=== PATIENT | female | born 1995 | race Caucasian/White ===

== ENCOUNTER 2016-12-18 19:25 | Emergency (ER) | payer SELFPAY ==
[2016-12-18 20:01] VITALS: BP 128/70
--- NOTE | 2016-12-18 20:11 | UC ---
Epistaxis Nasal HPI - HPI Summary HPI Summary: has been getting bloody noses on and off for the past several days-has not been pinching nostrils but was putting tissue in her nose - History of Current Complaint Chief Complaint: UCGeneralIllness Stated Complaint: NASAL COMPLAINT Time Seen by Provider: 12/18/16 20:00 Hx Obtained From: Patient Hx Last Menstrual Period: 08/27/13 ?: Yes Onset/Duration: Lasting Minutes Timing: Constant Severity Initially: Mild Severity Currently: None Character: Light Aggravating Factor(s): Nothing Alleviating Factor(s): Nothing Associated Signs And Symptoms: Positive: Negative - Allergies/Home Medications Allergies/Adverse Reactions: Allergies Allergy/AdvReac Type Severity Reaction Status Date / Time No Known Allergies Allergy Verified 12/18/16 20:01 Home Medications: Home Medications Folic Acid TAB* [Folvite TAB*] 1 mg PO DAILY 12/18/16 [History Confirmed ] Vitamin TAB* 1 tab PO 12/18/16 [History] Sertraline* [Zoloft*] 50 mg PO DAILY 12/18/16 [History Confirmed 12/18/16] PMH/Surg Hx/FS Hx/Imm Hx Previously Healthy: Yes - Surgical History Surgical History: Yes Surgery Procedure, Year, and Place: CHOLECYSTECTOMY, RT ACHILLES TENDON LENGTHENING , TONSILLECTOMY - Family History Known Family History: Positive: None - Social History Occupation: Unemployed Lives: With Family Alcohol Use: None Substance Use Type: None Smoking Status (MU): Heavy Every Day Tobacco Smoker Have You Smoked in the Last Year: Yes Cessation Counseling: Patient Advised to Stop Review of Systems Constitutional: Negative Skin: Negative Eyes: Negative ENT: Negative, Nasal Discharge - epistaxix on/off Respiratory: Negative Cardiovascular: Negative Gastrointestinal: Negative Genitourinary: Negative Motor: Negative Neurovascular: Negative Musculoskeletal: Negative Neurological: Negative Psychological: Negative All Other Systems Reviewed And Are Negative: Yes Physical Exam Triage Information Reviewed: Yes Appearance: Well-Appearing, No Pain Distress, Well-Nourished Vital Signs: Initial Vital Signs Temp 98.7 F 12/18/16 19:56 Pulse 100 12/18/16 19:56 Resp 16 12/18/16 19:56 BP 128/70 12/18/16 19:56 Pulse Ox 100 12/18/16 19:56 Vital Signs Reviewed: Yes Eye Exam: Normal Eyes: Positive: Conjunctiva Clear ENT Exam: Normal ENT: Positive: Normal ENT inspection, Hearing grossly normal, Pharynx normal, Nasal drainage, Other: - nasal seputm erythematous no bleeding. Negative: Nasal congestion Dental: Positive: Gross Decay/Caries @ Neck exam: Normal Neck: Positive: Supple, Nontender, No Lymphadenopathy Respiratory Exam: Normal Respiratory: Positive: Chest non-tender, Lungs clear, Normal breath sounds, No respiratory distress, No accessory muscle use Cardiovascular Exam: Normal Cardiovascular: Positive: RRR, No Murmur, Pulses Normal, Brisk Capillary Refill Musculoskeletal Exam: Normal Musculoskeletal: Positive: Strength Intact, ROM Intact, No Edema Neurological Exam: Normal Neurological: Positive: Alert, Muscle Tone Normal Psychological Exam: Normal Psychological: Positive: Normal Response To Family Skin Exam: Normal Epistaxis Nasal Course/Dx - Course Course Of Treatment: cool mist humidifer, vaseline to nose, saline nasal spray, increase fluids, direct pressure for any further bleeding - Differential Dx/Diagnosis Differential Diagnosis/HQI/PQRI: Coagulopathy, Epistaxis, Hypertension Provider Diagnoses: Epistaxis, 2nd trimester of Discharge - Discharge Plan Condition: Stable Disposition: HOME Patient Education Materials: Sodium Chloride (Into the nose), Nosebleed (ED) Referrals: [facility] [place] [facility] [place] [facility] [Outside] - 3 Days
== END 2016-12-18 20:28 | disposition home or self-care (01) ==
LOC: UCCORT 19:25
DX: O26.892 Other specified pregnancy related conditions, second trimester (principal); Z3A.00 Weeks of gestation of pregnancy not specified; R04.0 Epistaxis; Z90.49 Acquired absence of other specified parts of digestive tract; F17.210 Nicotine dependence, cigarettes, uncomplicated
CPT/HCPCS: 99212; G0463

== ENCOUNTER 2017-01-21 15:12 | Emergency (ER) | payer SELFPAY ==
[2017-01-21 16:40] VITALS: BP 128/73
[2017-01-21] MEDS ORDERED: predniSONE TAB* 20 MG PO ONE (17:16)
--- NOTE | 2017-01-21 17:16 | UC ---
Respiratory Complaint HPI - History of Current Complaint Chief Complaint: UCGeneralIllness Stated Complaint: LEFT EAR PAIN,CONGESTION Time Seen by Provider: 01/21/17 16:39 Hx Obtained From: Patient Hx Last Menstrual Period: 08/27/13 ?: Yes Onset/Duration: Sudden Onset - 5 days with cough congestion and some ear pain., Lasting Days - 5, Worse Since - last 2 days. Timing: Constant Severity Initially: Mild Severity Currently: Moderate Character: Cough: Nonproductive - wheezing Associated Signs And Symptoms: Positive: Dyspnea, Wheezing, URI, Nasal Congestion - Risk Factors Pulmonary Embolism Risk Factors: , Smoking Cardiac Risk Factors: Family History - Allergies/Home Medications Allergies/Adverse Reactions: Allergies Allergy/AdvReac Type Severity Reaction Status Date / Time Eggs or Egg-derived Products Allergy Nausea And Verified 01/21/17 16:40 Vomiting Home Medications: Home Medications guaiFENesin ER TAB [Mucinex*] 1 tab PO BID PRN 01/21/17 [History Confirmed 01/21] PMH/Surg Hx/FS Hx/Imm Hx Endocrine History Of: Denies: Thyroid Disease Respiratory History Of: Denies: Asthma - Surgical History Surgical History: Yes Surgery Procedure, Year, and Place: CHOLECYSTECTOMY, RT ACHILLES TENDON LENGTHENING , TONSILLECTOMY - Family History Known Family History: Positive: None, Hypertension, Diabetes Negative: Cardiac Disease - Social History Occupation: Employed Full-time Lives: With Family Alcohol Use: None Substance Use Type: None Smoking Status (MU): Light Every Day Tobacco Smoker Amount Used/How Often: 3-4 cig/day Have You Smoked in the Last Year: Yes Household Exposure Type: Cigarettes Review of Systems ENT: Ear Ache Respiratory: Shortness Of Breath, Cough Neurological: Headache - has mostly resolved All Other Systems Reviewed And Are Negative: Yes Physical Exam Triage Information Reviewed: Yes Appearance: No Pain Distress, Well-Nourished, Ill-Appearing Vital Signs: Initial Vital Signs Temp 98.9 F 01/21/17 16:35 Pulse 115 01/21/17 16:35 Resp 18 01/21/17 16:35 BP 128/73 01/21/17 16:35 Pulse Ox 97 01/21/17 16:35 Vital Signs Reviewed: Yes Eyes: Positive: Conjunctiva Clear ENT: Positive: Pharyngeal erythema, Nasal congestion, TM bulging - but translucent Dental: Positive: Gross Decay/Caries @ Neck exam: Normal Respiratory: Positive: Wheezing - Diffuse expiratory. Negative: Respiratory distress, Accessory muscle use Cardiovascular Exam: Normal Abdomen Description: Positive: Soft, Other: - with normal FHT Musculoskeletal Exam: Normal Neurological Exam: Normal Psychological Exam: Normal Skin Exam: Normal UC Diagnostic Evaluation - Laboratory O2 Sat by Pulse Oximetry: 97 Respiratory Course/Dx - Differential Dx/Diagnosis Differential Diagnosis/HQI/PQRI: Asthma, Lower Resp Infection, Sinusitis Provider Diagnoses: Acute URI. Acute bronchospasm. Eustachian tube dysfunction. Discharge - Discharge Plan Condition: Stable Disposition: HOME Prescriptions: Albuterol HFA INHALER* [Ventolin HFA Inhaler*] 2 puff INH Q4H PRN #1 mdi PRN Reason: Wheezing predniSONE TAB* [Deltasone TAB*] 20 mg PO DAILY #18 tab Patient Education Materials: Upper Respiratory Infection (ED), Bronchospasm (ED ), Prednisone (By mouth) Additional Instructions: Smoking Cessation Tricks. 1. Cut down by 1 cigarette per day every 2-3 days. Write the number of smokes for that day on the calendar. 2. Identify triggers to smoking: after meals, on the phone, in the car, with coffee, on breaks at work, etc. 3. Formulate a plan with a behavior to replace the smoking. Fireballs in the car , doodle pad on the phone, flavored creamer for the coffee, go for a walk after a meal or on break at work. 4. For stress smokes do deep breathing relaxation. Breath deep in through the nose hold the breath in for a few seconds then breath out slowly through the mouth. NASAL SPRAYS AND DROPS: Afrin in the PUMP/ MIST bottle. Tilt your head down and look at the floor while doing a strong sniff with the spray. Decongestant nasal sprays and drops often give dramatic relief from congestion. They are often recommended for patients with sinus infection to assist with sinus drainage. Persons with high blood pressure should consult the doctor before using these nasal sprays. Afrin and Mynor-Synephrine are common behh-bio-[id number] preparations. They should not be used for more than five days, as "rebound" congestion can occur - - the congestion flares as the drug wears off. A way of dealing with this rebound congestion problem is to medicate only one nostril each time, allowing the other nostril to recover from the medicine' s effects. When you no longer need the drug during the day, spray only one nostril each night. This helps you sleep well without severe rebound congestion. Call the doctor if you develop severe headache, palpitations, or chest pain.
== END 2017-01-21 17:42 | disposition home or self-care (01) ==
LOC: UCCORT 15:12
DX: O26.899 Other specified pregnancy related conditions, unspecified trimester (principal); J06.9 Acute upper respiratory infection, unspecified; J98.01 Acute bronchospasm; H69.80 Other specified disorders of Eustachian tube, unspecified ear; Z90.49 Acquired absence of other specified parts of digestive tract; F17.210 Nicotine dependence, cigarettes, uncomplicated; K02.9 Dental caries, unspecified
CPT/HCPCS: 99212; G0463; J7512

== ENCOUNTER 2017-06-28 19:48 | Emergency (ER) | payer OTHER ==
[2017-06-28 20:06] VITALS: BP 123/70
--- NOTE | 2017-06-28 20:31 | UC ---
Respiratory Complaint HPI - HPI Summary HPI Summary: pt presents with 2 children with respiratory complaints. Pt with cough and congestion since Monday. + sinus congestion, +PND No ear pain. No fever, chills, rash Taking Tylenol - with improvement Pt with 3month old - not breast feeding no diarrhea No vagina discharge, itching, burning nausea last night - no vomiting vaccinations UTD mom smokes 2 cigs per day Pt's medications reviewed this visit - History of Current Complaint Chief Complaint: UCRespiratory Stated Complaint: CHEST CONGESTION, COUGH Time Seen by Provider: 06/28/17 20:03 Hx Obtained From: Patient Hx Last Menstrual Period: 08/27/13 ?: No Severity Initially: Mild Severity Currently: Mild Character: Cough: Nonproductive - Allergies/Home Medications Allergies/Adverse Reactions: Allergies Allergy/AdvReac Type Severity Reaction Status Date / Time Eggs or Egg-derived Products Allergy Nausea And Verified 06/28/17 20:06 Vomiting PMH/Surg Hx/FS Hx/Imm Hx Previously Healthy: Yes - Surgical History Surgical History: Yes Surgery Procedure, Year, and Place: CHOLECYSTECTOMY, RT ACHILLES TENDON LENGTHENING , TONSILLECTOMY - Family History Known Family History: Positive: None, Hypertension, Diabetes Negative: Cardiac Disease - Social History Lives: With Family Alcohol Use: None Substance Use Type: None Smoking Status (MU): Light Every Day Tobacco Smoker Amount Used/How Often: 3-4 cig/day Have You Smoked in the Last Year: Yes Household Exposure Type: Cigarettes Review of Systems Constitutional: Negative Skin: Negative Eyes: Negative ENT: Negative Respiratory: Cough Cardiovascular: Negative Gastrointestinal: Negative Genitourinary: Negative Motor: Negative Neurovascular: Negative Musculoskeletal: Negative Neurological: Negative Psychological: Negative Is Patient Immunocompromised?: No All Other Systems Reviewed And Are Negative: Yes Physical Exam Triage Information Reviewed: Yes Appearance: Well-Appearing, No Pain Distress Vital Signs: Initial Vital Signs Temp 98.5 F 06/28/17 20:04 Pulse 92 06/28/17 20:04 Resp 16 06/28/17 20:04 BP 123/70 06/28/17 20:04 Pulse Ox 99 06/28/17 20:04 Vital Signs Reviewed: Yes Eye Exam: Normal Eyes: Positive: Conjunctiva Clear ENT Exam: Normal ENT: Positive: Normal ENT inspection, Hearing grossly normal, Pharynx normal, Nasal congestion - TM x 2 clear + nasal congestion + PND uvula midline no exudate, no erythema, TMs normal Dental Exam: Normal Neck exam: Normal Neck: Positive: Supple, Nontender, No Lymphadenopathy Respiratory Exam: Normal Respiratory: Positive: Chest non-tender, Lungs clear, No respiratory distress, No accessory muscle use, Wheezing - + diffuse wheeze no rhonchi Cardiovascular Exam: Normal Cardiovascular: Positive: RRR, No Murmur, Pulses Normal, Brisk Capillary Refill Abdominal Exam: Normal Abdomen Description: Positive: Nontender, No Organomegaly, Soft Bowel Sounds: Positive: Present Musculoskeletal Exam: Normal Neurological Exam: Normal Neurological: Positive: Alert Psychological Exam: Normal Skin Exam: Normal UC Diagnostic Evaluation - Laboratory O2 Sat by Pulse Oximetry: 99 Respiratory Course/Dx - Course Course Of Treatment: Pt with congestion, wheeze on exam. Pt with sick contact with similar. Will give Rx flonase, MDI. encouraged decrease smoking. hydrate. secretion precaution. Pt in agreement with plan - Differential Dx/Diagnosis Provider Diagnoses: upper resp infection Discharge - Discharge Plan Condition: Stable Disposition: HOME Prescriptions: Fluticasone NASAL SPRAY 50MCG* [Flonase NASAL SPRAY 50MCG*] 2 spray BOTH NARES DAILY #1 btl Patient Education Materials: Upper Respiratory Infection (ED) Referrals: No Primary Care Phys,NOPCP [Primary Care Provider] - Additional Instructions: - Okay to alternate ibuprofen (advil, motrin) and tylenol every 3 hours for fever - stay well hydrated - drink plenty of non-alcoholic, non-caffinated beverages - use inhaler - 2 puffs every 4 hours for wheezing - use nasal spray as prescribed -okay to take over the counter decongestants - These infections are spread by secretions - do NOT share eating or drinking utensils - clean items you share with other people such as cell phones, computer mouse, TV remote, computer tablets, etc - frequent hand washing is important - contact your doctor, return here, or go to the emergency department with questions or concerns
[2017-06-28] MEDS ORDERED: Albuterol HFA INHALER* 8 gm MDI INH ONE (20:47)
== END 2017-06-28 21:06 | disposition home or self-care (01) ==
LOC: UCCORT 19:48
DX: J06.9 Acute upper respiratory infection, unspecified (principal); F17.210 Nicotine dependence, cigarettes, uncomplicated
CPT/HCPCS: 99212; A9270-GY; G0463

== ENCOUNTER 2017-11-18 10:06 | Emergency (ER) | payer OTHER ==
--- OUTSIDE RECORDS SUMMARY | 2017-11-18 11:14 | XMS REPORT ---
:1995 External Reference #:[id number] Author Organization [facility] [address] [facility] [address] [address] Phone [phone] Care Team Providers Name Role Phone In Annetta Loo M.D. Care Team Information Supervisor Floor Assembly Unavailable Payers Type Date Identification Numbers Payment Provider Subscriber Commercial Effective: Policy Number: [facility] 2013 [id number] [place] PayID: [id number] [address] [place] [address] Medigap Part B Effective: 2013 Policy Number: Medicaid CARINE Nicholson [id number] PayID: [id number] [address] [place] [address] Problems Date Description Provider Status Onset: 06/06/2014 Diphtheria + pertussis + tetanus Lilly Marin CNM Active vaccine Onset: 05/28/2014 In Annetta Loo M.D. Active Onset: 05/28/2014 In Annetta Loo M.D. 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 Family History Date Family Member(s) Problem(s) Comments Siblings 2 Siblings One With Bipolar One With Asthma Maternal Grandfather Skin Cancer Maternal Uncles Breast Cancer Social History Type Date Description Comments Education Highest level completed, 12th grade Marital Status Legal Status: Legally Lives With Mother And Father Lives With Brother Smoke-Free Home is smoke-free smokes outside Smoke-Free Work is smoke-free Work Status Full-Time Employment Abuse No history of abuse ETOH Use Rarely consumes alcohol Recreational Drug Use Never Used Drugs Smoking Patient is a current smoker, smokes 1/2 PPD every day Daily Caffeine Consumes on average 5 cups of regular coffee per day # Partners in a Lifetime 4 STD's Chlamydia STD's Genital Herpes Allergies, Adverse Reactions, Alerts Date Description Reaction Status Severity Comments 12/02/2013 NKDA active Medications Medication Date Status Form Strength Qnty SIG Indications Ordering Provider No Active Active Unknown Medications 018 Diflucan Hx Tablets 150mg 1tabs 1 by mouth In Whan 014 - every day Mayra Loo 014 No Active Hx Unknown Medications 014 - 014 AD Hx Tablets 90tabs take one by Gagen, 014 - mouthevery Lilly day , CNM 014 Flintstones Hx Unknown Complete 000 Immunizations CPT Code Status Date Vaccine Lot # [id number] Given 07/09/2014 Influenza Virus Split 3 Yrs And Above Dosage [id number] Given 06/06/2014 tetanus, diptheria, acellular pertussis / over 7 years/intra mus [id number] Given 05/23/2014 Rho(D) Immune Globulin Full Dose Intramuscular [id number] Vital Signs Date Vital Result Comment 10/27/2017 Height 67 inches 5'7" Weight 159.00 lb BP Systolic 120 mmHg BP Diastolic 68 mmHg BMI (Body Mass Index) 24.9 kg/m2 07/09/2014 Weight 165.00 lb BP Systolic 130 mmHg BP Diastolic 70 mmHg 06/23/2014 Weight 164.00 lb BP Systolic 122 mmHg BP Diastolic 68 mmHg 06/06/2014 Weight 161.00 lb BP Systolic 120 mmHg BP Diastolic 68 mmHg 05/23/2014 Weight 159.00 lb BP Systolic 120 mmHg BP Diastolic 58 mmHg 04/25/2014 Weight 158.00 lb BP Systolic 120 mmHg BP Diastolic 68 mmHg 02/27/2014 Weight 149.00 lb BP Systolic 120 mmHg BP Diastolic 60 mmHg 02/13/2014 Weight 151.00 lb BP Systolic 120 mmHg BP Diastolic 58 mmHg 01/07/2014 Height 67 inches 5'7" Weight 154.00 lb BP Systolic 120 mmHg BP Diastolic 60 mmHg BMI (Body Mass Index) 24.1 kg/m2 12/02/2013 Height 67 inches 5'7" Weight 161.00 lb BP Systolic 120 mmHg BP Diastolic 60 mmHg BMI (Body Mass Index) 25.2 kg/m2 12/02/2013 Height 67 inches 5'7" Weight 160.00 lb BP Systolic 118 mmHg BP Diastolic 58 mmHg BMI (Body Mass Index) 25.1 kg/m2 Results Test Date Test Result H/L Range Note Laboratory test finding 07/09/2014 Vaginal Strep Screen See Note 1 Laboratory test finding 05/23/2014 RhIMMUNE Globulin See Note 2 26-28 Weeks Urinalysis With 05/23/2014 Urine Color YELLOW Yellow Microscopic Urine Clarity CLEAR Clear Urine Glucose - Dipstick NEGATIVE mg/dL Negative Urine Bilirubin - Dipstick NEGATIVE Negative Urine Ketone NEGATIVE mg/dL Negative Urine Specific [place] 1.015 1.010-1.030 Urine Blood NEGATIVE Negative Urine PH 6.5 6.5-7.5 Urine Protein - Dipstick NEGATIVE mg/dL Negative Urine Urobilinogen - Dipstick 0.2 E.U./dL 0.2-1.0 Urine Nitrite - Dipstick NEGATIVE Negative Urine Leuk Esterase MODERATE High Negative Urine RBC 0-2 rbc/hpf 0-7 Urine WBC 5-10 wbc/hpf 0-7 Urine Epithelial Cells MANY NONESEEN/lpf 3 Urine Bacteria MODERATE NONESEEN High Type And Screen 05/23/2014 Patient Blood Type AB NEG Antibody Screen Negative Negative Laboratory test finding 05/23/2014 Urine Screen See Note 4 Urine Culture See Note 5 Hemoglobin/Hematocrit 05/23/2014 Hemoglobin 11.5 gm/dL Low 11.6-15.8 Hematocrit 34.0 % Low 36.0-46.1 Glucose,1 HR Post Glucola 05/23/2014 1 HR Glucose,Post Glucola 79 mg/dL - 138 6 1 Hour Urine Glucose NEGATIVE % Negative 1 Hour Urine Ketone NEGATIVE Negative Afp,Tetra Profile 02/14/2014 Afp Tetra REF#[id number] 7 Cystic Fibrosis Dna 02/14/2014 Cystic Fibrosis [id number] 8 Chlamydia/GC Audra 12/10/2013 Chlamydia Trachomatis, Negative Negative Audra Neisseria Gonorrhoeae, Audra Negative Negative Please note: See Note 9 Genital Culture W/ Gram Stain 12/10/2013 Gram Stain See Note 10 Genital Culture See Note 11 1 Comprehensive 12/02/2013 Hepatitis B Surface Nonreactive 12 ([facility] Antigen Nonreactive Rapid Plasma Reagin NONREACTIVE NONREACTIVE 13 Lead,Blood (Adult) 1 g/dL 0-19 14 Varicella-Zoster Virus IgG Ab 1.25 Immune>1.09in 15 Antibody Detection See Note 16 Urine Culture See Note 17 Rubella Igg Antibody 12/02/2013 Rubella IgG Antibody Reactive Reactive Rubella IgG Iu/ml 14.1 IU/mL >=10.0 18 CBC W/Automated Diff 12/02/2013 White Blood Count 10.9 K/uL High 3.1-10.7 Red Blood Count 4.37 M/uL 3.90-5.40 Hemoglobin 12.6 gm/dL 11.6-15.8 Hematocrit 37.8 % 36.0-46.1 Mean Cell Volume 86.5 fl 80.9-99.0 Mean Corpuscular HGB 28.8 pg 25.9-32.7 Mean Corpuscular HGB Conc 33.3 g/dL 30.8-34.3 Platelet Count 324 K/uL 155-360 Red Cell Distri Width SD 47.3 fl High 3-47 Red Cell Distri Width %CV 15.1 % High 11.7-14.4 Mean Platelet Volume 11.0 fL 8.9-12.4 Neut% 57.7 % 28.0-68.0 Lymph % 28.3 % 17.0-46.1 [place] % 12.1 % 4.3-13.2 Eo% 1.5 % 0.0-6.6 Bas% 0.4 % 0.0-1.1 Neut# 6.29 K/uL 1.0-7.0 Lymph # 3.09 K/uL 0.8-3.4 [place] # 1.32 K/uL High 0.0-0.6 Eos # 0.16 K/uL 0.0-0.5 Baso # 0.04 K/uL 0.0-0.1 Type And Screen 12/02/2013 Patient Blood Type AB NEG Antibody Screen Negative Negative Urinalysis With Microscopic 12/02/2013 Urine Color YELLOW Yellow Urine Clarity CLEAR Clear Urine Glucose - Dipstick NEGATIVE mg/dL Negative Urine Bilirubin - Dipstick NEGATIVE Negative Urine Ketone 15 mg/dL High Negative Urine Specific [place] 1.020 1.010-1.030 Urine Blood NEGATIVE Negative Urine PH 6.0 Low 6.5-7.5 Urine Protein - Dipstick NEGATIVE mg/dL Negative Urine Urobilinogen - Dipstick 0.2 E.U./dL 0.2-1.0 Urine Nitrite - Dipstick NEGATIVE Negative Urine Leuk Esterase TRACE High Negative Urine RBC NONE SEEN rbc/hpf 0-7 Urine WBC 0-2 wbc/hpf 0-7 Urine Epithelial Cells MODERATE NONESEEN/lpf 19 Urine Mucus SMALL NONESEEN Laboratory test finding 11/22/2013 HCG Serum, Qualitative POSITIVE High 1 NO GROUP B STREPTOCOCCI ISOLATED 2 -------- Issue -------- Unit # Bld Type Product Status Date Time User Rsrvd [id number] RHOGAM PRSMD TRFSD 05/23/143 LAB.TOW Unit Satisfactory? No Apparent Contamination Volume: 2 ML TX Begin: 05/23/14 By AutoDft [place] End: 05/23/14 By AutoDft 3 POSSIBLE UROGENITAL CONTAMINATION. 4 05/23/14 LAB.CKS Deleted by Reflex Group UACOM 5 COLONY COUNT ! >100,000 CFU/ml Organism 1 ! URETHRAL NOELLE 6 POST GLUCOLA 7 FORWARDED TO REFERENCE LABORATORY. 8 FORWARDED TO REFERENCE LABORATORY. 9 Acceptable specimens for this test are male urethral swab, endocervical swab and liquid based pap specimens, vaginal swabs in APTIMA transports and first void urine. See online Directory of Services for test number for rectal and pharyngeal specimens. Performed at: [facility] [address], [place], [place] [id number] Salesperson Hosiery: Daniella Jackson MD, Phone: [phone] 10 GRAM STAIN ! GRAM STAIN SUSPICIOUS FOR BACTERIAL VAGINOSIS ! MANY GRAM VARIABLE COCCOBACILLI 11 Organism 1 ! GARDNERELLA VAGINALIS QUANTITY ! MANY 12 HBsAg not detected; does not exclude the possibility of exposure to or early acute infections with HBV. 13 PENDING; TEST PERFORMED ON MONDAYS AND THURSDAYS 14 The Centers for Disease Control and Prevention states blood lead levels less than 10 ug/dL in children have been associated with numerous adverse health effects. [facility] Guidelines: Blood lead levels in the range 5-9 ug/dL have been associated with adverse health effects in children aged 6 years and younger. Environmental Exposure: WHO Recommendation <20 Occupational Exposure: OSHA Lead Std 40 Detection Limit=1 15 Nonimmune <0.91 Equivocal 0.91 - 1.09 Immune >1.09 Effective December 09, 2013 the reference interval for Varicella-Zoster V Ab, IgG will be changing to: Negative <135 Equivocal 135 - 165 Positive >165 Performed at: - [facility] [id number] Salesperson Hosiery: Daniella Jackson MD, Phone: [phone] 16 No reportable results 17 COLONY COUNT ! 5,000 - 10,000 CFU/ml Organism 1 ! URETHRAL NOELLE 18 Values >=10.0 IU/mL are positive for IgG antibodies to rubella virus and are considered IMMUNE. 19 POSSIBLE UROGENITAL CONTAMINATION. Procedures Date CPT Code Description Status 07/09/2014 12589 Echography Uterus Complete>14WKS. 0 Days Completed 07/09/2014 98646 Antepartum Care 7 Or More Visits Completed 07/09/2014 71444 Antepartum Care 7 Or More Visits Completed 06/23/2014 85845 Antepartum Care 7 Or More Visits Completed 06/23/2014 51355 Antepartum Care 7 Or More Visits Completed 06/06/2014 53930 Antepartum Care 7 Or More Visits Completed 06/06/2014 25389 Antepartum Care 4-6 Visits Completed 05/23/2014 85108 Antepartum Care 4-6 Visits Completed 05/23/2014 45124 Antepartum Care 4-6 Visits Completed 04/25/2014 25485 Antepartum Care 4-6 Visits Completed 04/25/2014 97072 Antepartum Care 4-6 Visits Completed 02/27/2014 60659 Antepartum Care 4-6 Visits Completed 02/27/2014 17433 Antepartum Care 4-6 Visits Completed 02/13/2014 74099 Antepartum Care 4-6 Visits Completed 02/13/2014 67694 Antepartum Care 4-6 Visits Completed 01/07/2014 27950 Antepartum Care 4-6 Visits Completed 01/07/2014 42392 Antepartum Care 4-6 Visits Completed 12/17/2013 69899 Ultrasound < 14 Weeks Single Or First Gestation Completed 12/10/2013 22175 Antepartum Care 4-6 Visits Completed 12/10/2013 52042 Antepartum Care 4-6 Visits Completed 12/02/2013 94872 Antepartum Care 4-6 Visits Completed Plan of Care Future Appointment(s):11/10/2017 8:30 am - In Annetta Loo M.D. at [id number] - In Annetta Loo M.D.N63.42 Unspecified lump in left breast, subareolarNew Xrays:B/L Breast Sonogram
--- OUTSIDE RECORDS SUMMARY | 2017-11-18 11:14 | XMS REPORT ---
:1995 External Reference #:[id number] Author Organization [facility] Address [facility] [address] [address] Phone [phone] Care Team Providers Name Role Phone In Annetta Loo M.D. Care Team Information Lead Simulation Modeling Engineer Unavailable Payers Type Date Identification Numbers Payment Provider Subscriber Commercial Effective: Policy Number: [facility] 2013 [id number] [place] PayID: [id number] [address] [place] [address] Medigap Part B Effective: 2013 Policy Number: Medicaid CARINE Nicholson [id number] PayID: [id number] [address] [place] [address] Problems Date Description Provider Status Onset: 06/06/2014 [...] CPT Code Status Date Vaccine Lot # [id number] Given 07/09/2014 Influenza Virus Split 3 Yrs And Above Dosage [id number] Given 06/06/2014 tetanus, diptheria, acellular pertussis / over 7 years/intra mus [id number] Given 05/23/2014 Rho(D) Immune Globulin Full Dose Intramuscular [id number] Vital Signs Date Vital Result Comment 10/27/2017 [...] 07/09/2014 Vaginal Strep Screen See Note 1 Glucose,1 HR Post Glucola 05/23/2014 1 HR Glucose,Post 79 mg/dL -138 2 Glucola 1 Hour Urine Glucose NEGATIVE % Negative 1 Hour Urine Ketone NEGATIVE Negative Hemoglobin/Hematocrit 05/23/2014 Hemoglobin 11.5 gm/dL Low 11.6-15.8 Hematocrit 34.0 % Low 36.0-46.1 Laboratory test finding 05/23/2014 Urine Screen See Note 3 Urine Culture See Note 4 Type And Screen 05/23/2014 Patient Blood Type AB NEG Antibody Screen Negative Negative Urinalysis With Microscopic 05/23/2014 Urine Color YELLOW Yellow Urine Clarity CLEAR Clear Urine Glucose - Dipstick NEGATIVE mg/dL Negative Urine Bilirubin - Dipstick NEGATIVE Negative Urine Ketone NEGATIVE mg/dL Negative Urine Specific Marcus 1.015 1.010-1.030 Urine Blood NEGATIVE Negative Urine PH 6.5 6.5-7.5 Urine Protein - Dipstick NEGATIVE mg/dL Negative Urine Urobilinogen - Dipstick 0.2 E.U./dL 0.2-1.0 Urine Nitrite - Dipstick NEGATIVE Negative Urine Leuk Esterase MODERATE High Negative Urine RBC 0-2 rbc/hpf 0-7 Urine WBC 5-10 wbc/hpf 0-7 Urine Epithelial Cells MANY NONESEEN/lpf 5 Urine Bacteria MODERATE NONESEEN High Laboratory test finding 05/23/2014 RhIMMUNE Globulin See Note 6 26-28 Weeks Cystic Fibrosis Dna 02/14/2014 Cystic Fibrosis [id number] Afp,Tetra Profile 02/14/2014 Afp Tetra REF#[id number] 8 Chlamydia/GC Audra 12/10/2013 Chlamydia Negative Negative Trachomatis, Audra Neisseria Gonorrhoeae, Audra Negative Negative Please [...] % 28.0-68.0 Lymph % 28.3 % 17.0-46.1 Cannon % 12.1 % 4.3-13.2 Eo% 1.5 % 0.0-6.6 Bas% 0.4 % 0.0-1.1 Neut# 6.29 K/uL 1.0-7.0 Lymph # 3.09 K/uL 0.8-3.4 Cannon # 1.32 K/uL High 0.0-0.6 Eos # 0.16 K/uL 0.0-0.5 Baso # 0.04 K/uL 0.0-0.1 Type And Screen 12/02/2013 Patient Blood Type AB NEG Antibody Screen Negative Negative Urinalysis With Microscopic 12/02/2013 Urine Color YELLOW Yellow Urine Clarity CLEAR Clear Urine Glucose - Dipstick NEGATIVE mg/dL Negative Urine Bilirubin - Dipstick NEGATIVE Negative Urine Ketone 15 mg/dL High Negative Urine Specific Marcus 1.020 1.010-1.030 Urine Blood NEGATIVE Negative Urine [...] 1 NO GROUP B STREPTOCOCCI ISOLATED 2 POST GLUCOLA 3 05/23/14 LAB.CKS Deleted by Reflex Group UACOM 4 COLONY COUNT ! >100,000 CFU/ml Organism 1 ! URETHRAL NOELLE 5 POSSIBLE UROGENITAL CONTAMINATION. 6 -------- Issue -------- Unit # Bld Type Product Status Date Time User Rsrvd [id number] RHOGAM PRSMD TRFSD 05/23/14 165 LAB.TOW Unit Satisfactory? No Apparent Contamination Volume: 2 ML TX Begin: 05/23/14 By AutoDft [place] End: 05/23/14 By AutoDft 7 FORWARDED TO REFERENCE LABORATORY. 8 FORWARDED TO REFERENCE LABORATORY. 9 Acceptable specimens for this test are male urethral swab, endocervical swab and liquid based pap specimens, vaginal swabs in APTIMA transports and first void urine. See online Directory of Services for test number for rectal and pharyngeal specimens. Performed at: [facility] [address], [place], [place] [id number] Personal Service Representative: Daniella Jackson MD, Phone: [phone] 10 GRAM STAIN ! GRAM STAIN SUSPICIOUS [...] been associated with numerous adverse health effects. [facility] Guidelines: Blood lead levels in the range [...] - 165 Positive >165 Performed at: - [facility] [id number] Personal Service Representative: Daniella Jackson MD, Phone: [phone] No reportable results 17 COLONY COUNT ! 5,000 - 10,000 CFU/ml Organism 1 ! URETHRAL NOELLE 18 Values >=10.0 IU/mL are positive for IgG antibodies to rubella virus and are considered IMMUNE. 19 POSSIBLE UROGENITAL CONTAMINATION. Procedures Date CPT Code Description Status 07/09/2014 49149 Echography Uterus Complete>14WKS. 0 Days Completed 07/09/2014 08747 Antepartum Care 7 Or More Visits Completed 07/09/2014 93699 Antepartum Care 7 Or More Visits Completed 06/23/2014 31994 Antepartum Care 7 Or More Visits Completed 06/23/2014 36664 Antepartum Care 7 Or More Visits Completed 06/06/2014 07902 Antepartum Care 7 Or More Visits Completed 06/06/2014 60381 Antepartum Care 4-6 Visits Completed 05/23/2014 43798 Antepartum Care 4-6 Visits Completed 05/23/2014 58344 Antepartum Care 4-6 Visits Completed 04/25/2014 70532 Antepartum Care 4-6 Visits Completed 04/25/2014 96439 Antepartum Care 4-6 Visits Completed 02/27/2014 70721 Antepartum Care 4-6 Visits Completed 02/27/2014 42485 Antepartum Care 4-6 Visits Completed 02/13/2014 83618 Antepartum Care 4-6 Visits Completed 02/13/2014 29733 Antepartum Care 4-6 Visits Completed 01/07/2014 18643 Antepartum Care 4-6 Visits Completed 01/07/2014 20790 Antepartum Care 4-6 Visits Completed 12/17/2013 81641 Ultrasound < 14 Weeks Single Or First Gestation Completed 12/10/2013 05125 Antepartum Care 4-6 Visits Completed 12/10/2013 40820 Antepartum Care 4-6 Visits Completed 12/02/2013 85107 Antepartum Care 4-6 Visits Completed Plan of Care Future Appointment(s):11/10/2017 8:30 am - In Annetta Loo M.D. at Main [id number] - In Annetta Loo M.D.N63.42 Unspecified lump in left breast, subareolar
[2017-11-18 11:19] VITALS: BP 123/72
--- NOTE | 2017-11-18 11:31 | UC ---
FLU HPI - HPI Summary HPI Summary: 22 y/o female presents to the urgent care c/o dry cough, fever, sore throat , GRIFFITH for the past 3 days. Pt reports her co-worker was Dx w/ the flu last week. Pt has taking Tylenol/Ibuprofen to alleviate symptoms. 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 She had the flu vaccine last year. Pt denies SOB, chest pain, abdominal pain, N/V/D - History of Current Complaint Chief Complaint: UCGeneralIllness Stated Complaint: ST,FEVER,RAMESH Time Seen by Provider: 11/18/17 11:24 Hx Obtained From: Patient Hx Last Menstrual Period: 08/30/13 ?: No Onset/Duration: Gradual Onset, Lasting Days - 3 days, Still Present, Worse Since - yesterday Severity Currently: Mild Severity Initially: Moderate Pain Intensity: 4 Pain Scale Used: 0-10 Numeric Associated Signs & Symptoms: Positive: Fever, Myalgia, Cough, Sore Throat, Nasal Congestion, Headache - Risk Factors Influenza Risk Factors: Negative - Allergy/Home Medications Allergies/Adverse Reactions: Allergies Allergy/AdvReac Type Severity Reaction Status Date / Time MS Eggs or Egg-derived Allergy Nausea And Verified 11/18/17 11:19 Products Vomiting [Eggs or Egg-derived Products] PMH/Surg Hx/FS Hx/Imm Hx Previously Healthy: Yes - Pt denies PMHX - Surgical History Surgical History: Yes Surgery Procedure, Year, and Place: CHOLECYSTECTOMY, RT ACHILLES TENDON LENGTHENING , TONSILLECTOMY - Family History Known Family History: Positive: Hypertension, Diabetes Negative: Cardiac Disease - Social History Occupation: Employed Full-time Lives: With Family Alcohol Use: None Substance Use Type: None Smoking Status (MU): Light Every Day Tobacco Smoker Amount Used/How Often: 3-4 cig/day Have You Smoked in the Last Year: Yes Household Exposure Type: Cigarettes Review of Systems Constitutional: Fever, Chills, Fatigue, Other - body aches Skin: Negative Eyes: Negative ENT: Sore Throat, Nasal Discharge, Sinus Congestion Respiratory: Cough Cardiovascular: Negative Gastrointestinal: Negative Genitourinary: Negative Motor: Negative Neurovascular: Negative Musculoskeletal: Negative Neurological: Headache Psychological: Negative Is Patient Immunocompromised?: No All Other Systems Reviewed And Are Negative: Yes Physical Exam Triage Information Reviewed: Yes Vital Signs: Initial Vital Signs Temp 98.7 F 02/17/18 11:14 Pulse 113 11/18/17 11:14 Resp 14 11/18/17 11:14 BP 123/72 11/18/17 11:14 Pulse Ox 100 11/18/17 11:14 - Additional Comments VITAL SIGNS: Reviewed. GENERAL: Patient is a well developed and nourished female who is sitting comfortable in the examining table. Patient is not in any acute respiratory distress. HEAD AND FACE: No signs of trauma. No ecchymosis, hematomas or skull depressions. No sinus tenderness. edematous erythematous nasal mucosa with yellowish discharge, EYES: PERRLA, EOMI x 2, No injected conjunctiva, clear watery eyes, no nystagmus. No photophobia. EARS: Hearing grossly intact. Ear canals and tympanic membranes are within normal limits. MOUTH: Positive pharynx with erythema, no exudates,no palatal petechiae. no B/ L tonsillar enlargement Uvula in midline. NECK: Supple, trachea is midline, Positive anterior cervical lymphadenopathy, no JVD, no carotid bruit, no c-spine tenderness, neck with full ROM. No meningeal signs, no Kernig's or brudzinskis signs. CHEST: Symmetric, no tenderness at palpation LUNGS: Clear to auscultation bilaterally. No wheezing or crackles. CVS: Regular rate and rhythm, S1 and S2 present, no murmurs or gallops appreciated. ABDOMEN: Soft, non-tender. No signs of distention. No rebound no guarding, and no masses palpated. Bowel sounds are normal. EXTREMITIES: FROM in all major joints, no edema, no cyanosis or clubbing. NEURO: Alert and oriented x 3. No acute neurological deficits. Speech is normal and follows commands. SKIN: Dry and warm Flu Course/Dx - Course Course Of Treatment: 22 y/o female presents to the urgent care c/o dry cough, fever, sore throat , GRIFFITH for the past 3 days. Pt reports her co-worker was Dx w/ the flu last week. Pt has taking Tylenol/Ibuprofen to alleviate symptoms. 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 She had the flu vaccine last year. Pt denies SOB, chest pain, abdominal pain, N/V/ D. Hx obtained.Pt with URI on examination.Influenza A&B ordered: result: negative. PT Rx ibuprofen PO to alleviate symptoms. Advised on hand washing and wear a mask to avoid spreading. Pt advised to rest, increase fluid intake, eat well and avoid strenuous exercise. If symptoms do not improve or worsen advised to return to the urgent care or f/u with her PCP for further evaluation and treatment. Pt understood and agreed with plan of care. - Differential Dx/Diagnosis Differential Diagnosis/HQI/PQRI: Bronchitis, Influenza, Pneumonia, Upper Respiratory Infection Provider Diagnoses: 1- Upper respiratory infection Discharge - Discharge Plan Condition: Stable Disposition: HOME Prescriptions: Ibuprofen TAB* [Motrin TAB* 800 MG] 800 mg PO Q6H PRN #20 tab PRN Reason: Pain Patient Education Materials: Upper Respiratory Infection (ED) Forms: *Work Release Referrals: [facility] REFERRAL [Outside] - If Needed Additional Instructions: 1-Please take ibuprofen PO q6-8hrs prn as instructed after meals to alleviate pain and swelling. Increase fluid intake, eat well, rest and avoid strenuous exercise 2-If symptoms do not improve or worsen please return to the urgent care or f/u with your PCP for further evaluation and treatment.
== END 2017-11-18 11:56 | disposition home or self-care (01) ==
LOC: UCCORT 10:06
DX: J06.9 Acute upper respiratory infection, unspecified (principal); Z20.828 Contact with and (suspected) exposure to other viral communicable diseases; F17.210 Nicotine dependence, cigarettes, uncomplicated
CPT/HCPCS: 87502; 99212; G0463

== ENCOUNTER 2018-06-06 13:38 | Emergency (ER) | payer OTHER ==
[2018-06-06 13:49] VITALS: BP 126/80
--- NOTE | 2018-06-06 14:12 | ED ---
Lower Extremity - HPI Summary HPI Summary: 23-year-old female presents with right knee injury on Monday. She states she was bending down and felt her kneecap shift to the lateral aspect. She states that she stood back up and it popped back in again. This has happened before. She states she still has pain which did not happened before. She states persistent pain from her thigh to her wong. States feels like a tightness. She feels like her knees give out. She has a follow-up with ortho on Monday. Did not have any imaging done. No numbness or tingling. Has been able to ambulate. - History of Current Complaint Chief Complaint: UCLowerExtremity Stated Complaint: KNEE PAIN Time Seen by Provider: 06/06/18 13:52 Hx Last Menstrual Period: 05/19/18 Pain Intensity: 7 - Allergies/Home Medications Allergies/Adverse Reactions: Allergies Allergy/AdvReac Type Severity Reaction Status Date / Time eggs Allergy abd upset Uncoded 06/06/18 13:50 Home Medications: Home Medications NK [No Home Medications Reported] 06/06/18 [History Confirmed 06/06/18] PMH/Surg Hx/FS Hx/Imm Hx Endocrine/Hematology History: Denies: Hx Thyroid Disease Respiratory History: Denies: Hx Asthma - Surgical History Surgery Procedure, Year, and Place: CHOLECYSTECTOMY, RT ACHILLES TENDON LENGTHENING , TONSILLECTOMY Infectious Disease History: No Infectious Disease History: Denies: Traveled Outside the [place] in Last 30 Days - Family History Known Family History: Positive: None, Hypertension, Diabetes Negative: Cardiac Disease - Social History Alcohol Use: None Substance Use Type: Reports: None Smoking Status (MU): Light Every Day Tobacco Smoker Amount Used/How Often: 3-4 cig/day Have You Smoked in the Last Year: Yes Review of Systems Negative: Fever Negative: Chest Pain Negative: Shortness Of Breath Positive: Myalgia - right knee All Other Systems Reviewed And Are Negative: Yes Physical Exam Triage Information Reviewed: Yes Vital Signs On Initial Exam: Initial Vitals Temp Pulse Resp BP Pulse Ox 98 F 100 17 126/80 100 06/06/18 13:45 06/06/18 13:45 06/06/18 13:45 06/06/18 13:45 06/06/18 13:45 Vital Signs Reviewed: Yes Appearance: Positive: Well-Appearing Skin: Positive: Warm, Dry Head/Face: Positive: Normal Head/Face Inspection Eyes: Positive: Normal, Conjunctiva Clear ENT: Positive: Pharynx normal Respiratory/Lung Sounds: Positive: Clear to Auscultation, Breath Sounds Present Cardiovascular: Positive: Normal, RRR Abdomen Description: Positive: Nontender, Soft Bowel Sounds: Positive: Present Musculoskeletal: Positive: Strength/ROM Intact - right knee, Other - good Pulses , nontender knee, positive ballottement Neurological: Positive: Normal Psychiatric: Positive: Normal Diagnostics - Vital Signs Vital Signs Temp Pulse Resp BP Pulse Ox 06/06/18 13:45 98 F 100 17 126/80 100 - Laboratory Lab Statement: Any lab studies that have been ordered have been reviewed, and results considered in the medical decision making process. - Radiology knee Xray Interpretation: No Acute Changes Radiology Interpretation Completed By: Radiologist Lower Extremity Course/Dx - Course Course Of Treatment: 23-year-old female presents with right knee injury on Monday. She states she was bending down and felt her kneecap shift to the lateral aspect. She states that she stood back up and it popped back in again. This has happened before. She states she still has pain which did not happened before. She states persistent pain from her thigh to her wong. States feels like a tightness. She feels like her knees give out. She has a follow-up with ortho on Monday. Did not have any imaging done. No numbness or tingling. Has been able to ambulate. on exam has nontender knee. pos ballotment. xray normal. gave immbolizer and will have follow up with ortho as scheduled. patient understand and agrees with plan. - Diagnoses Differential Diagnosis/HQI/PQRI: Positive: Fracture (Closed), Sprain, Strain Provider Diagnoses: Right knee pain Discharge - Sign-Out/Discharge Documenting (check all that apply): Patient Departure All imaging exams completed and their final reports reviewed: Yes - Discharge Plan Condition: Good Disposition: HOME Patient Education Materials: Knee Pain (ED) Referrals: No Primary Care Phys,NOPCP [Primary Care Provider] - Additional Instructions: Use immobilizer Stay off knee as much as possible Ice, elevate, Ibuprofen or Tylenol every 6 hours for pain Follow up with ortho as scheduled Return to ED if develop or any new or worsening symptoms - Billing Disposition and Condition Condition: GOOD Disposition: Home
--- NOTE | 2018-06-06 14:19 | RAD ---
HISTORY: right knee pain COMPARISONS: None VIEWS: 4 , Frontal, lateral, axial, and oblique views of the right knee FINDINGS: BONE DENSITY: Normal. BONES: There is no displaced fracture. JOINTS: There is no arthropathy. ALIGNMENT: There is no dislocation. SOFT TISSUES: Unremarkable. OTHER FINDINGS: None. IMPRESSION: NO ACUTE OSSEOUS INJURY. IF SYMPTOMS PERSIST, RECOMMEND REPEAT IMAGING.
== END 2018-06-06 14:32 | disposition home or self-care (01) ==
LOC: UCEAST 13:38
DX: M25.561 Pain in right knee (principal); Z91.012 Allergy to eggs; F17.210 Nicotine dependence, cigarettes, uncomplicated
CPT/HCPCS: 99213; G0463

== ENCOUNTER 2018-06-12 18:23 | Emergency (ER) | payer OTHER ==
[2018-06-12 18:49] VITALS: BP 120/72
--- NOTE | 2018-06-12 19:16 | UC ---
Knee Pain HPI - HPI Summary HPI Summary: 23 y/o female presents to the urgent care requesting a clearance to return to work s/p Rt knee pain. Pt was seen here at the clinic 06/06/2018. Pt has kept her Rt knee immobilized w/ karen bandage. Pain is 2/10. Pt reports she starts a new job tomorrow and needs a letter she can return to work. she will not be doing any heavy lifting. Just paper work. Pt has not f/u w/ Orthopedic Dr since symptoms have improved. Pt denies numbness or tingling sensation, calf pain, swelling, SOB, chest pain,abdominal pain, N/V/D - History of Current Complaint Chief Complaint: UCLowerExtremity Stated Complaint: KNEE PAIN RECHECK Time Seen by Provider: 06/12/18 19:10 Hx Obtained From: Patient Hx Last Menstrual Period: 05/19/18 ?: No Onset/Duration: Gradual Onset, Lasting Weeks - 1 week, Resolved Severity Initially: Moderate Severity Currently: Mild Pain Intensity: 2 Pain Scale Used: 0-10 Numeric Character: Dull - at times Aggravating Factor(s): Nothing Alleviating Factor(s): Rest, OTC Meds Associated Signs And Symptoms: Positive: Negative Able to Bear Weight: Yes - Risk Factors Septic Arthritis Risk Factor: Negative Gout Risk Factor: Negative - Allergies/Home Medications Allergies/Adverse Reactions: Allergies Allergy/AdvReac Type Severity Reaction Status Date / Time eggs Allergy abd upset Uncoded 06/12/18 18:43 PMH/Surg Hx/FS Hx/Imm Hx Previously Healthy: Yes - Pt denies PMHX - Surgical History Surgical History: Yes Surgery Procedure, Year, and Place: CHOLECYSTECTOMY, RT ACHILLES TENDON LENGTHENING , TONSILLECTOMY - Family History Known Family History: Positive: Hypertension, Diabetes Negative: Cardiac Disease - Social History Occupation: Employed Full-time Lives: With Family Alcohol Use: None Substance Use Type: None Smoking Status (MU): Light Every Day Tobacco Smoker Amount Used/How Often: 3-4 cig/day Have You Smoked in the Last Year: Yes Household Exposure Type: Cigarettes Review of Systems Constitutional: Negative Skin: Negative Eyes: Negative ENT: Negative Respiratory: Negative Cardiovascular: Negative Gastrointestinal: Negative Genitourinary: Negative Motor: Negative Neurovascular: Negative Musculoskeletal: Other: - RT knee pain mild Neurological: Negative Psychological: Negative Is Patient Immunocompromised?: No All Other Systems Reviewed And Are Negative: Yes Physical Exam - Summary Physical Exam Summary: Vital Signs Reviewed: Yes General: well developed, well nourished female sitting in the examining table w/ o any apparent distress Eyes: Positive: Conjunctiva Clear - PERRLA, EOMI, fundi grossly normal ENT: Positive: Normal ENT inspection, Hearing grossly normal, Pharynx normal, TMs normal Neck: Positive: Supple, Nontender, No Lymphadenopathy Respiratory: Positive: Chest nontender, Lungs clear, Normal breath sounds, No respiratory distress Cardiovascular: Positive: RRR, No Murmur, Pulses Normal, Brisk Capillary Refill Abdomen Description: Positive: Nontender, No Organomegaly, Soft. Negative: CVA Tenderness (R), CVA Tenderness (L) Bowel Sounds: Positive: Present Musculoskeletal: Positive: Strength Intact, No Edema,RT Knee: Pt is able to bear weight and ambulate with limping. No surface trauma, soft tissue swelling, or obvious effusion. No overlying erythema or warmth. The Rt knee is without obvious asymmetry or deformity when compared with the LF knee. FROM of Rt knee. Mild tenderness to palpation of the patella, no effusion or ballottement. No tenderness over the infrapatellar tendon. No point tenderness over the medial joint line, No tenderness over the medial or lateral tibial plateaus. No tenderness over the proximal fibular head, No tenderness, fullness or mass of the popliteal fossa. No quadriceps tenderness. No laxity of the ACL. PCL, MCL, or LCL. no collateral ligament laxity to valgus or varus stress. Negative Winnie/Drawer sign. Negative Jie. Distal motor and neurovascular status intact. Neurological Exam: Normal Psychological Exam: Normal Skin Exam: Normal Triage Information Reviewed: Yes Vital Signs: Initial Vital Signs Temp 98.8 F 06/12/18 18:44 Pulse 104 06/12/18 18:44 Resp 16 06/12/18 18:44 BP 120/72 06/12/18 18:44 Pulse Ox 100 06/12/18 18:44 Knee Pain Course/Dx - Course Course Of Treatment: 23 y/o female presents to the urgent care requesting a clearance to return to work s/p Rt knee pain. Pt was seen here at the clinic 06/06. Pt has kept her Rt knee immobilized w/ karen bandage. Pain is 2/10. Pt reports she starts a new job tomorrow and needs a letter she can return to work. she will not be doing any heavy lifting. Just paper work. Pt has not f/u w / Orthopedic Dr since symptoms have improved. Pt denies numbness or tingling sensation, calf pain, swelling, SOB, chest pain,abdominal pain, N/V/D. Hx obtained. Pt RT knee WnL, no swelling or bruising observed, FROM of RT knee on examination. Pt probably w/ patellofemonal syndrome. Pt advised to f/u w/ Orthopedic Dr from Sports Medicine if symptoms returned.D/C instrutions explained and Pt givent letter. Pt understood and agreed w/ plan of care.Pt left clinic ambulating w/o any difficulty. - Differential Dx/Diagnosis Differential Diagnosis/HQI/PQRI: Contusion, Fracture (Closed), Patellofemoral Syndrome, Sprain, Strain, Tendonitis Provider Diagnoses: 1- Rt knee pain. 2- Patellofemoral syndrome Discharge - Sign-Out/Discharge Documenting (check all that apply): Patient Departure - D/c home All imaging exams completed and their final reports reviewed: No Studies - Discharge Plan Condition: Stable Disposition: HOME Patient Education Materials: Patellofemoral Pain Syndrome (ED) Forms: *Work Release Referrals: [facility] [place] PH[facility]IAN REFERRAL [Outside] - 1 Week [facility] [Provider Group] - 1 Week Additional Instructions: 1-Pleasecontinue taking ibuprofen PO as directed to alleviate pain and swelling. 2-Please a keep your knee immobilizer provided last week here at the clinic or an karen bandage. Avoid strenuous exercise or heavy lifting. 3- Please f/u with Orthopedic from the Sports Medicine in 1 week is not improvement of symptoms for further evaluation and treatment. - Billing Disposition and Condition Condition: STABLE Disposition: Home
== END 2018-06-12 19:43 | disposition home or self-care (01) ==
LOC: UCEAST 18:23
DX: M25.561 Pain in right knee (principal); M25.861 Other specified joint disorders, right knee; F17.210 Nicotine dependence, cigarettes, uncomplicated
CPT/HCPCS: 99211; G0463

== ENCOUNTER 2018-12-24 18:03 | Emergency (ER) | payer OTHER ==
[2018-12-24 19:14] VITALS: BP 132/74
--- NOTE | 2018-12-24 19:21 | UC ---
Throat Pain/Nasal Sukhjinder HPI - HPI Summary HPI Summary: 23-year-old female who has a history of getting thrush several times throughout the year. She's had no recent illness and has not been on any antibiotics. She has been followed up by her primary care doctor although there is no real source of the thrush. She states the nystatin troches works for her. - History of Current Complaint Chief Complaint: [place] Stated Complaint: THRUSH/LEFT EAR PAIN Time Seen by Provider: 12/24/18 19:08 Hx Obtained From: Patient Hx Last Menstrual Period: 12/07/18 ?: No Onset/Duration: Gradual Onset Severity: Mild Pain Intensity: 3 - Allergies/Home Medications Allergies/Adverse Reactions: Allergies Allergy/AdvReac Type Severity Reaction Status Date / Time eggs Allergy abd upset Uncoded 12/24/18 19:14 Home Medications: Home Medications Citalopram TAB* [CeleXA TAB*] 20 mg PO DAILY 12/24/18 [History Confirmed ] Meloxicam [Mobic] 15 mg PO DAILY 12/24/18 [History Confirmed 12/24/18] clonazePAM TAB(*) [KlonoPIN TAB(*)] 1 mg PO TID PRN 12/24/18 [History Confirmed 12/24/18] PMH/Surg Hx/FS Hx/Imm Hx Previously Healthy: Yes - History of thrush - Surgical History Surgical History: Yes Surgery Procedure, Year, and Place: CHOLECYSTECTOMY, RT ACHILLES TENDON LENGTHENING , TONSILLECTOMY - Family History Known Family History: Positive: None, Hypertension, Diabetes Negative: Cardiac Disease - Social History Alcohol Use: None Substance Use Type: None Smoking Status (MU): Light Every Day Tobacco Smoker Amount Used/How Often: 3-4 cig/day Have You Smoked in the Last Year: Yes Household Exposure Type: Cigarettes Review of Systems All Other Systems Reviewed And Are Negative: Yes ENT: Positive: Other - Patient states she developed thrush in the past couple of days. No recent antibiotic usage. Is Patient Immunocompromised?: No Physical Exam Triage Information Reviewed: Yes Appearance: Well-Appearing, No Pain Distress, Well-Nourished Vital Signs: Initial Vital Signs Temp 98.0 F 12/24/18 19:10 Pulse 99 12/24/18 19:10 Resp 16 12/24/18 19:10 BP 132/74 12/24/18 19:10 Pulse Ox 100 12/24/18 19:10 Vital Signs Reviewed: Yes ENT: Positive: Other - Coated tongue, mildly erythematous areas buccal mucosa. Musculoskeletal Exam: Normal Neurological Exam: Normal Psychological Exam: Normal Skin Exam: Normal Throat Pain/Nasal Course/Dx - Course Course Of Treatment: Patient has been comfortable here. She does prefer the nystatin troches for treatment. She is to follow-up with her primary care provider if no improvement in 3 or 4 days. - Differential Dx/Diagnosis Provider Diagnosis: Oral thrush Discharge - Sign-Out/Discharge Documenting (check all that apply): Patient Departure All imaging exams completed and their final reports reviewed: No Studies - Discharge Plan Condition: Good Disposition: HOME Prescriptions: Clotrimazole KATE* [Mycelex Kate*] 10 mg MT SEE INSTRUCTIONS 14 Days #70 kate Patient Education Materials: Oral Candidiasis (ED) Forms: *Work Release Referrals: Ishan Owens MD [Primary Care Provider] - Additional Instructions: Follow-up with your primary care provider if no improvement in 4- 5 days. - Billing Disposition and Condition Condition: GOOD Disposition: Home
== END 2018-12-24 19:35 | disposition home or self-care (01) ==
LOC: UCCORT 18:03
DX: B37.0 Candidal stomatitis (principal); H92.02 Otalgia, left ear; F17.210 Nicotine dependence, cigarettes, uncomplicated
CPT/HCPCS: 99212; G0463